=== PATIENT | male | born 1990 | race Two or more races ===

== ENCOUNTER 2023-03-19 10:00 | Emergency (ER) | payer OTHER ==
[~2023-03-19] VITALS: Ht 172.7 cm; Wt 74.8 kg
== END 2023-03-19 14:13 | disposition left against medical advice (07) ==
LOC: ER 10:01
DX: Z53.21 Procedure and treatment not carried out due to patient leaving prior to being seen by health care provider (principal)

== ENCOUNTER 2024-01-01 20:06 | Emergency (ER) | payer OTHER ==
[~2024-01-01] VITALS: Ht 172.7 cm; Wt 65.8 kg
[2024-01-01 20:20] VITALS: BP 118/74; O2SAT 99
[2024-01-01] MEDS ORDERED: ORPHENADRINE CITRATE 30 MG/ML AMPUL IM STA (21:00)
[2024-01-01] MEDS ORDERED: DEXAMETHASONE SODIUM PHOSPHATE 4 MG/ML VIAL IM STA (21:00)
== END 2024-01-01 22:03 | disposition home or self-care (01) ==
LOC: ER 20:07
DX: M62.830 Muscle spasm of back (principal); Z91.013 Allergy to seafood